=== PATIENT | male | born 1945 | race Caucasian/White ===

== ENCOUNTER 2022-02-25 09:17 | Inpatient (IN) | payer OTHER ==
[2022-02-17 14:47] LABS: EOSINOPHILS # (AUTO) 0.2 X10'3 (0-0.9); EOSINOPHILS % (AUTO) 3.5 % (0-6); LYMPHOCYTES % (AUTO) 22.1 % (21-51); MEAN CORPUSCULAR HEMOGLOBIN 29.2 PG (27.0-31.0); MEAN CORPUSCULAR HGB CONC 33.3 g/dL (33.0-36.5); MEAN CORPUSCULAR VOLUME 87.5 FL (78-98); MEAN PLATELET VOLUME 8.3 FL (7.4-10.4); MONOCYTES # (AUTO) 0.6 X10'3 (0-0.9); MONOCYTES % (AUTO) 12.7 % (2-12); NEUTROPHILS # (AUTO) 2.8 X10'3 (1.8-7.7); NEUTROPHILS % (AUTO) 60.7 % (42-75); PRE OP HEMATOCRIT 38.8 % (42.0-52.0); PRE OP HEMOGLOBIN 12.9 g/dL (14.0-17.9); RED BLOOD COUNT 4.44 X10'6 (4.70-6.10); RED CELL DISTRIBUTION WIDTH 17.6 % (11.5-14.5)
[2022-02-17 14:51] LABS: PRE OP PLATELET COUNT 95 X10'3 (140-440)
[2022-02-17 15:01] LABS: ALBUMIN 2.5 G/DL (3.4-5.0); ALBUMIN/GLOBULIN RATIO 0.5 (1.1-1.5); ALKALINE PHOSPHATASE 181 IU/L (46-116); BLOOD UREA NITROGEN 27 MG/DL (7-18); BUN/CREATININE RATIO 15.2 (5.4-32.0); CALCIUM 8.3 MG/DL (8.5-10.1); CHLORIDE 107 MMOL/L (99-107); CREATININE 1.78 MG/DL (0.60-1.10); PRE OP ALT 18 U/L (30-65); PRE OP ANION GAP 7 (8-16); PRE OP AST 28 U/L (10-37); PRE OP BILIRUB, TOTAL 0.5 MG/DL (0.0-1.0); PRE OP POTASSIUM 4.8 MMOL/L (3.4-5.1); PRE OP SODIUM 138 MMOL/L (135-145); TOTAL CARBON DIOXIDE 23.9 MMOL/L (24-32); TOTAL PROTEIN 7.1 G/DL (6.4-8.2); eGFR 37 ML/MIN
[2022-02-17 15:06] LABS: PRE OP GLUCOSE 263 MG/DL (70-104)
[2022-02-25] VITALS (19 sets, daily range): BP systolic 100–130; BP diastolic 50–78
[~2022-02-25] VITALS: Ht 188 cm; Wt 102.5 kg
[~2022-02-25 09:17] MED LIST: ASPI-611 PO; CADE40GE2 TOP; CEFT2FRO2 IV; DAPA10TA PO; DOXE10CA2 PO; FLO0.4C PO; FURO-150 PO; GABA300C PO; HEPARIN 5000 UNIT/ML SQ; HUM7525 SQ; HYDR-3965 PO; LISI2.5T14 PO; MAGN200T5 PO; OMEP20TA43 PO; SIMV-42 PO; TRAM50TA2 PO; ceFAZolin inj. 2,000 MG in dextrose 5%-water 100 ML IV ONE; famotidine 20mg tablet PO ONE; vancomycin 1,500 MG in NS 300ml IV soln IV ONE
[2022-02-25] MEDS: ringers solution, lacted 1,000 ML IV SCH ×2 (11:58→23:15)
[2022-02-25] MEDS ORDERED: bacitracin 15gm ointment TP ONE (12:35)
[2022-02-25 13:09] LABS: APTT 28 SECONDS (22-32)
[2022-02-25] MEDS ORDERED: sevoflurane 250ml liquid IH ONE (13:12)
[2022-02-25] MEDS ORDERED: ROPIVAcaine 0.5% (5mg/ml) 30ml vial ONE (13:14)
[2022-02-25] MEDS ORDERED: fentaNYL /PF 50mcg/ml 5ml ampule ONE (13:14)
[2022-02-25] MEDS ORDERED: midazolam 1 mg/ML 2ml injection ONE (13:14)
[2022-02-25] MEDS ORDERED: morphine 2 MG/ML inj. syringe IV PRN (14:50)
[2022-02-25] MEDS ORDERED: meperidine/PF 25mg/ml syringe IV PRN ×3 (14:50)
[2022-02-25] MEDS ORDERED: ringers solution, lacted 1,000 ML IV SCH (14:50)
[2022-02-25] MEDS ORDERED: proCHLORperazine 10 MG/2 ml inj IV PRN (14:50)
[2022-02-25] MEDS ORDERED: morphine 4 MG/ML inj SYRINge IV PRN (14:50)
[2022-02-25] MEDS ORDERED: ondansetron/PF 4mg/2ml inj IV PRN ×2 (14:50→20:00)
[2022-02-25] MEDS ORDERED: ondansetron/PF 4mg/2ml inj ONE (15:08)
[2022-02-25] MEDS ORDERED: propofol inj 20 ML IV ONE (15:08)
[2022-02-25] MEDS ORDERED: acetaminophen 1,000mg/100ml IV 100 ML IV ONE (17:14)
[2022-02-25] MEDS ORDERED: ePHEDrine 50MG/ML INJ. ONE (17:14)
--- NOTE | 2022-02-25 17:38 | NUR ---
Received from OR via [facility] , accompanied by Anesthesiologist MIKE and report given by Anesthesiolgist. PT DROWSY BUT AROUSABLE AND RESPONSIVE TO TOUCH. PT ARRIVES ON SIMPLE MASK O2 10L AT 98% FIO2. VSS NO COMPLAINT OF PAIN. R FOOT COOL TO TOUCH WITH BLANCHING AND RETURN OF SKIN TONE, MD AWARE. CHRONIC F/C DRAINING APPROPRIATELY. R ANKLE DRESSING AND SPLINT IN PLACE. DRY AND INTACT. Addendum: 02/25/22 at 1801 by Brady Hawley RN Amended: Links added.
--- NOTE | 2022-02-25 18:50 | NUR ---
TALKED WITH EGG WORKER AT [facility] FOR PT RIDE PICK-UP BACK TO PRIOR PLACE OF LIVING AT [facility]. EGG WORKER STATES "NO MORE DRIVERS ARE AVAILABLE AT THIS TIME" AND ARE UNABLE TO PICK PT UP. NURSING TRACK PRODUCTION ENGINEER NOTIFIED. Addendum: 02/25/22 at 1858 by Brady Hawley RN Amended: Links added.
--- NOTE | 2022-02-25 19:55 | NUR ---
CALLED DR. GHOTRA, UPDATED ON PT NOT HAVING RIDE HOME BY PRE[facility]ED [facility]". [facility]CH [facility] ALSO NOTIFIED. EVENING SHIFT [employer] NOW ON SHIFT, DAY [facility] THAT PRIOR PRIMARY RN TALKED WITH OFF FOR NIGHT AND UNABLE TO ARRANGE PT TRANSPORT. PT TO BE ADMIT OBS PER DR GHOTRA, TELEPHONE ORDERS PLACED. AWAITING ROOM PLACEMENT. @APPROX 20:20, ROOM PLACEMENT TO 4020A, @20:30, REPORT GIVEN TO KELLI ROLDAN ON ORTHO, QUESTIONS ADDRESSED. ROOM BEING CLEANED CURRENTLY AND ABLE TO GO TO ROOM IN 5 MINUTES. Addendum: 02/25/22 at 2041 by Brady Hawley RN Amended: Links added.
[2022-02-25] MEDS ORDERED: HYDROcodone/acetaminophen 5mg/325mg tablet PO PRN (20:00)
--- NOTE | 2022-02-25 20:15 | NUR ---
I got report from Brady ROLDAN and will give report to Mara ROLDAN once she is available.
[2022-02-25] MEDS ORDERED: dextrose 50%-water 50ml dispensing syringe IV PRN ×2 (21:10)
[2022-02-25] MEDS ORDERED: DEXTROSE 15 GM of carb/4 tabs (each vial/BOTTLE has 4 tablets) PO PRN ×2 (21:10)
[2022-02-25] MEDS ORDERED: MESSAGE TO PHARMACY PO ONE (21:10)
[2022-02-25] MEDS ORDERED: glucagon, human recombinant 1mg kit SUBCUT PRN (21:10)
[2022-02-25] MEDS ORDERED: traMADol 50MG tablet PO PRN (21:10)
[2022-02-25] MEDS: sodium chloride 0.45% 1,000 ML IV SCH (21:18)
[2022-02-25] MEDS ORDERED: cefazolin/dext.iso 2gm/100ml 100 ML IV ONE (21:30)
[2022-02-25] MEDS: insulin Lispro (HumaLOG) vial - multi-dose SQ SCH (22:31)
[2022-02-26 00:41] VITALS: BP 95/56
[2022-02-26 00:42] VITALS: BP 110/53
[2022-02-26 02:00] VITALS: BP 116/64
[2022-02-26] MEDS: HYDROcodone/acetaminophen 10/325mg tab PO PRN ×3 (02:31→17:26)
[2022-02-26 06:00] VITALS: BP 110/65
--- NOTE | 2022-02-26 06:41 | NUR ---
Problems reprioritized. Patient report given, questions answered & plan of care reviewed with Wendy ROLDAN.
[2022-02-26] MEDS: insulin Lispro (HumaLOG) vial - multi-dose SQ SCH ×2 (08:27→13:05)
--- NOTE | 2022-02-26 08:45 | NUR ---
Noted pt with T2DM, current A1c 7.1%. Pt provided with DM education and RD contact information at previous admit 12/24. No f/u education planned at this time though will remain available. Addendum: 02/26/22 at [address] Amended: Links added.
[2022-02-26 10:00] VITALS: BP 112/59
[2022-02-26] MEDS: sodium chloride 0.45% 1,000 ML IV SCH (15:50)
--- NOTE | 2022-02-26 16:30 | NUR ---
called and gave report to [facility]
--- NOTE | 2022-02-26 18:04 | NUR ---
pt discharged to [facility] via [facility]. pt discharged in stable condition. iv removed tip intact, no complications.
[2022-02-26] MEDS ORDERED: insulin glargine (Lantus) pen - multi-dose SQ SCH (21:00)
== END 2022-02-26 17:55 | DRG 494 ==
LOC: PAS 09:17 → ORTHO 4S 19:50
PROVIDERS: ADMIT Podiatrist Foot & Ankle Surgery; ATTEND Podiatrist Foot & Ankle Surgery
PROC: 0SG Lower Joints, Fusion (ICD-10-PCS; 2022-02-25)
PROC: 0SG Lower Joints, Fusion (ICD-10-PCS; 2022-02-25)
PROC: 0SG Lower Joints, Fusion (ICD-10-PCS; 2022-02-25)
PROC: 0SPFX5Z Removal of External Fixation Device from Right Ankle Joint, External Approach (ICD-10-PCS; 2022-02-25)
PROC: 3E0T3BZ Introduction of Anesthetic Agent into Peripheral Nerves and Plexi, Percutaneous Approach (ICD-10-PCS; 2022-02-25)
PROC: 0SGF03Z Fusion of Right Ankle Joint with Sustained Compression Internal Fixation Device, Open Approach (ICD-10-PCS; principal; 2022-02-25 13:12)
DX: S93.04XA Dislocation of right ankle joint, initial encounter (principal); M14.671 Charcot's joint, right ankle and foot; L08.9 Local infection of the skin and subcutaneous tissue, unspecified; X58.XXXA Exposure to other specified factors, initial encounter; Y93.89 Activity, other specified; Y92.89 Other specified places as the place of occurrence of the external cause; Y99.8 Other external cause status
CPT/HCPCS: 36415; 73610; 76000; 80053; 82948; 83036; 85025; 85610; 85730; 87081; 87811; A4618; A5200; A6223; A6253; A6449; A7000; C1713; G0378; J0131; J0690; J1815; J2250; J2405; J2704; J2795; J3010; J3370; J3490; J7040; J7060; J7120